=== PATIENT | male | born 2000 | race Hispanic/Latino ===

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

== ENCOUNTER 2021-10-16 22:05 | Emergency (ER) | payer MEDICAID, OTHER ==
[~2021-10-16] VITALS: Ht 182.9 cm; Wt 86.2 kg
[2021-10-16 22:44] VITALS: BP 112/70
== END 2021-10-16 23:05 | disposition left against medical advice (07) ==
LOC: EDH 22:05
DX: F41.9 Anxiety disorder, unspecified (principal); Z53.21 Procedure and treatment not carried out due to patient leaving prior to being seen by health care provider
CPT/HCPCS: 93005